=== PATIENT | female | born 2000 | race Caucasian/White ===

== ENCOUNTER 2024-02-18 15:59 | Inpatient (IN) ==
[2024-02-18] MEDS: SODIUM CHLORIDE 0.9% 1,000 ML IV ONE (16:20)
--- NOTE | 2024-02-18 16:30 | Emergency Department Note ---
History of Present Illness General Chief complaint: Syncope Stated complaint: FAINTED/ Time Seen by Provider: 02/18/24 16:07 Source: patient, family and cop History of Present Illness Provider complaint: Syncope 23-year-old female G1, P0 at 28 weeks gestation presents emergency department for syncope. Patient is non-Amharic speaking and claims specialist devices are used. Friends are at bedside who are also not able to give a detailed history. They stated that the patient was in the bathroom earlier today and then fainted. They stated that it was approximately 15 minutes where she was out. At first the friends were stating that the patient was convulsing but then started saying that the patient was not convulsing. Patient is currently reporting pain in her head and neck and chest. She is reporting difficulty breathing. Patient recently emigrated from [facility]. No vaginal bleeding. No vaginal discharge. No leakage of vaginal fluid. Home Medications Medication Instructions Recorded Confirmed Type 21-iron fu-folic acid PO 11/06/23 02/11/24 History [ Complete] Allergies Allergy/AdvReac Type Severity Reaction Status Date / Time No Known Allergies Allergy Verified 02/11/24 13:24 Past Med/Surg History Problem List (Updated 02/18/24 @ 23:03 by Mikael Oneill MD) On mechanically assisted ventilation Status post Seizures (Acute) 34 weeks gestation of Eclampsia (Acute) Velamentous insertion of umbilical cord Supervision of normal first Late care affecting Encounter for anatomic survey Medical History Gastritis Surgical History No history of previous surgery Family History Denies family history of Ovarian cancer Breast cancer Colorectal cancer Social History Smoking Status: Unknown if ever smoked Do You Dip or Chew Tobacco: No; marital status: marital status details: Kishore Delacruz (26) Current Living Situation: Spouse and Family Current Living Situation Comment: lives with spouse, sister in law, no pets current occupational status: other 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 Feels Safe at Home: Yes Physical Exam Vital Signs Vital Signs - 24 hr 02/18/24 16:03 02/18/24 16:03 02/18/24 16:03 Temperature Temperature Source Pulse Rate Pulse Rate [Apical] Pulse Rate from SpO2 Sensor Pulse Rhythm [Apical] Pulse Strength [Apical] Respiratory Rate Respiratory Effort / Characteristics Blood Pressure 165/116 H 165/116 H 165/116 H Blood Pressure [Right Arm] Blood Pressure Mean 121 121 121 Blood Pressure Mean [Right Arm] Blood Pressure Position [Right Arm] Pulse Oximetry Oxygen Delivery Method Fraction of Inspired Oxygen SaO2/FiO2 Ratio Sepsis New/Unexplained Change in Mental Status Sepsis Action Taken by Nursing End-Tidal CO2 02/18/24 16:06 02/18/24 16:14 02/18/24 16:17 Temperature Temperature Source Pulse Rate 147 H Pulse Rate [Apical] 138 H Pulse Rate from SpO2 Sensor 146 H Pulse Rhythm [Apical] Pulse Strength [Apical] Respiratory Rate 33 H 36 H Respiratory Effort / Characteristics Blood Pressure 166/117 H Blood Pressure [Right Arm] 158/116 H Blood Pressure Mean 136 Blood Pressure Mean [Right Arm] 130 Blood Pressure Position [Right Arm] Lying Pulse Oximetry 99 95 Oxygen Delivery Method Room Air Fraction of Inspired Oxygen SaO2/FiO2 Ratio Sepsis New/Unexplained Change in Mental Status Sepsis Action Taken by Nursing End-Tidal CO2 02/18/24 16:17 02/18/24 16:17 02/18/24 16:18 Temperature Temperature Source Pulse Rate 115 H Pulse Rate [Apical] Pulse Rate from SpO2 Sensor Pulse Rhythm [Apical] Pulse Strength [Apical] Respiratory Rate 20 Respiratory Effort / Characteristics Blood Pressure 166/117 H 166/117 H Blood Pressure [Right Arm] Blood Pressure Mean 136 136 Blood Pressure Mean [Right Arm] Blood Pressure Position [Right Arm] Pulse Oximetry 100 Oxygen Delivery Method Room Air Fraction of Inspired Oxygen SaO2/FiO2 Ratio Sepsis New/Unexplained Change in Mental Status Sepsis Action Taken by Nursing End-Tidal CO2 02/18/24 16:20 02/18/24 16:21 02/18/24 16:23 Temperature Temperature Source Pulse Rate 145 H 128 H Pulse Rate [Apical] Pulse Rate from SpO2 Sensor Pulse Rhythm [Apical] Pulse Strength [Apical] Respiratory Rate 31 H Respiratory Effort / Characteristics Blood Pressure 158/108 H Blood Pressure [Right Arm] Blood Pressure Mean 123 Blood Pressure Mean [Right Arm] Blood Pressure Position [Right Arm] Pulse Oximetry Oxygen Delivery Method Fraction of Inspired Oxygen SaO2/FiO2 Ratio Sepsis New/Unexplained Change in Mental Status Sepsis Action Taken by Nursing End-Tidal CO2 02/18/24 16:23 02/18/24 16:24 02/18/24 16:40 Temperature Temperature Source Pulse Rate 116 H Pulse Rate [Apical] Pulse Rate from SpO2 Sensor 117 H Pulse Rhythm [Apical] Pulse Strength [Apical] Respiratory Rate 34 H Respiratory Effort / Characteristics Blood Pressure 158/108 H 144/101 H Blood Pressure [Right Arm] Blood Pressure Mean 123 117 Blood Pressure Mean [Right Arm] Blood Pressure Position [Right Arm] Pulse Oximetry 99 Oxygen Delivery Method Fraction of Inspired Oxygen SaO2/FiO2 Ratio Sepsis New/Unexplained Change in Mental Status Sepsis Action Taken by Nursing End-Tidal CO2 02/18/24 16:40 02/18/24 16:42 02/18/24 16:45 Temperature Temperature Source Pulse Rate 117 H Pulse Rate [Apical] Pulse Rate from SpO2 Sensor 117 H Pulse Rhythm [Apical] Pulse Strength [Apical] Respiratory Rate 21 Respiratory Effort / Characteristics Blood Pressure 144/101 H 140/85 Blood Pressure [Right Arm] Blood Pressure Mean 117 103 Blood Pressure Mean [Right Arm] Blood Pressure Position [Right Arm] Pulse Oximetry 100 Oxygen Delivery Method Fraction of Inspired Oxygen SaO2/FiO2 Ratio Sepsis New/Unexplained Change in Mental Status Sepsis Action Taken by Nursing End-Tidal CO2 02/18/24 16:46 02/18/24 16:47 02/18/24 16:51 Temperature Temperature Source Pulse Rate 113 H 113 H Pulse Rate [Apical] 113 H Pulse Rate from SpO2 Sensor 113 H Pulse Rhythm [Apical] Pulse Strength [Apical] Respiratory Rate 26 H Respiratory Effort / Characteristics Blood Pressure 140/85 Blood Pressure [Right Arm] 140/85 Blood Pressure Mean Blood Pressure Mean [Right Arm] 103 Blood Pressure Position [Right Arm] Pulse Oximetry 100 Oxygen Delivery Method Fraction of Inspired Oxygen SaO2/FiO2 Ratio Sepsis New/Unexplained Change in Mental Status Sepsis Action Taken by Nursing End-Tidal CO2 02/18/24 16:54 02/18/24 16:54 02/18/24 17:01 Temperature Temperature Source Pulse Rate 114 H Pulse Rate [Apical] Pulse Rate from SpO2 Sensor 113 H Pulse Rhythm [Apical] Pulse Strength [Apical] Respiratory Rate 22 Respiratory Effort / Characteristics Blood Pressure 132/91 Blood Pressure [Right Arm] Blood Pressure Mean 104 Blood Pressure Mean [Right Arm] Blood Pressure Position [Right Arm] Pulse Oximetry 99 Oxygen Delivery Method Fraction of Inspired Oxygen SaO2/FiO2 Ratio Sepsis New/Unexplained Change in Mental Status No Sepsis Action Taken by Nursing No Action Required End-Tidal CO2 02/18/24 17:15 02/18/24 17:15 02/18/24 17:18 Temperature Temperature Source Pulse Rate 112 H Pulse Rate [Apical] Pulse Rate from SpO2 Sensor 112 H Pulse Rhythm [Apical] Pulse Strength [Apical] Respiratory Rate 19 Respiratory Effort / Characteristics Blood Pressure 134/102 H 134/102 H Blood Pressure [Right Arm] Blood Pressure Mean 106 106 Blood Pressure Mean [Right Arm] Blood Pressure Position [Right Arm] Pulse Oximetry 99 Oxygen Delivery Method Fraction of Inspired Oxygen SaO2/FiO2 Ratio Sepsis New/Unexplained Change in Mental Status Sepsis Action Taken by Nursing End-Tidal CO2 02/18/24 17:30 02/18/24 17:36 02/18/24 17:36 Temperature Temperature Source Pulse Rate 108 H Pulse Rate [Apical] Pulse Rate from SpO2 Sensor 108 H Pulse Rhythm [Apical] Pulse Strength [Apical] Respiratory Rate 23 Respiratory Effort / Characteristics Blood Pressure 184/127 H 184/127 H Blood Pressure [Right Arm] Blood Pressure Mean 149 149 Blood Pressure Mean [Right Arm] Blood Pressure Position [Right Arm] Pulse Oximetry 98 Oxygen Delivery Method Fraction of Inspired Oxygen SaO2/FiO2 Ratio Sepsis New/Unexplained Change in Mental Status Sepsis Action Taken by Nursing End-Tidal CO2 02/18/24 17:42 02/18/24 17:45 02/18/24 17:45 Temperature Temperature Source Pulse Rate 128 H Pulse Rate [Apical] Pulse Rate from SpO2 Sensor 131 H Pulse Rhythm [Apical] Pulse Strength [Apical] Respiratory Rate 22 Respiratory Effort / Characteristics Blood Pressure 134/111 H 134/111 H Blood Pressure [Right Arm] Blood Pressure Mean 114 114 Blood Pressure Mean [Right Arm] Blood Pressure Position [Right Arm] Pulse Oximetry 100 Oxygen Delivery Method Fraction of Inspired Oxygen SaO2/FiO2 Ratio Sepsis New/Unexplained Change in Mental Status Sepsis Action Taken by Nursing End-Tidal CO2 02/18/24 17:52 02/18/24 17:57 02/18/24 18:11 Temperature Temperature Source Pulse Rate 118 H Pulse Rate [Apical] Pulse Rate from SpO2 Sensor 118 H Pulse Rhythm [Apical] Pulse Strength [Apical] Respiratory Rate 17 Respiratory Effort / Characteristics Blood Pressure 190/135 H 150/100 H Blood Pressure [Right Arm] Blood Pressure Mean 158 112 Blood Pressure Mean [Right Arm] Blood Pressure Position [Right Arm] Pulse Oximetry 90 Oxygen Delivery Method Fraction of Inspired Oxygen SaO2/FiO2 Ratio Sepsis New/Unexplained Change in Mental Status Sepsis Action Taken by Nursing End-Tidal CO2 02/18/24 18:15 02/18/24 18:20 02/18/24 18:25 Temperature Temperature Source Pulse Rate 111 H Pulse Rate [Apical] Pulse Rate from SpO2 Sensor Pulse Rhythm [Apical] Pulse Strength [Apical] Respiratory Rate 30 H 23 Respiratory Effort / Characteristics Blood Pressure 152/91 H 132/90 Blood Pressure [Right Arm] Blood Pressure Mean 113 104 Blood Pressure Mean [Right Arm] Blood Pressure Position [Right Arm] Pulse Oximetry 99 Oxygen Delivery Method Fraction of Inspired Oxygen 100 SaO2/FiO2 Ratio Sepsis New/Unexplained Change in Mental Status Sepsis Action Taken by Nursing End-Tidal CO2 02/18/24 18:25 02/18/24 18:30 02/18/24 19:01 Temperature Temperature Source Pulse Rate 112 H 111 H 110 H Pulse Rate [Apical] Pulse Rate from SpO2 Sensor 112 H 111 H Pulse Rhythm [Apical] Pulse Strength [Apical] Respiratory Rate 26 H 26 H Respiratory Effort / Characteristics Blood Pressure 132/90 153/94 H 153/94 H Blood Pressure [Right Arm] Blood Pressure Mean 104 113 Blood Pressure Mean [Right Arm] Blood Pressure Position [Right Arm] Pulse Oximetry 99 99 Oxygen Delivery Method Fraction of Inspired Oxygen SaO2/FiO2 Ratio Sepsis New/Unexplained Change in Mental Status Sepsis Action Taken by Nursing End-Tidal CO2 02/18/24 19:10 02/18/24 20:09 02/18/24 20:15 Temperature 34.5 C L Temperature Source Axillary Pulse Rate 89 Pulse Rate [Apical] 90 Pulse Rate from SpO2 Sensor Pulse Rhythm [Apical] Regular Pulse Strength [Apical] Normal Respiratory Rate 16 18 19 Respiratory Effort / Characteristics Mechanically Ventilated Blood Pressure 145/98 H Blood Pressure [Right Arm] 135/75 Blood Pressure Mean 113 Blood Pressure Mean [Right Arm] 95 Blood Pressure Position [Right Arm] Semi-fowlers Pulse Oximetry 92 96 Oxygen Delivery Method Mechanical Vent Fraction of Inspired Oxygen 100 80 SaO2/FiO2 Ratio 92 Sepsis New/Unexplained Change in Mental Status Sepsis Action Taken by Nursing End-Tidal CO2 30 02/18/24 20:19 Temperature Temperature Source Pulse Rate Pulse Rate [Apical] 87 Pulse Rate from SpO2 Sensor Pulse Rhythm [Apical] Regular Pulse Strength [Apical] Normal Respiratory Rate 18 Respiratory Effort / Characteristics Mechanically Ventilated Blood Pressure Blood Pressure [Right Arm] 122/74 Blood Pressure Mean Blood Pressure Mean [Right Arm] 90 Blood Pressure Position [Right Arm] Semi-fowlers Pulse Oximetry 92 Oxygen Delivery Method Mechanical Vent Fraction of Inspired Oxygen 100 SaO2/FiO2 Ratio 92 Sepsis New/Unexplained Change in Mental Status Sepsis Action Taken by Nursing End-Tidal CO2 Physical Exam GENERAL: Patient is tearful. HENT: Exam performed. -Head: Normocephalic and atraumatic. EYES: Conjunctivae and EOM are normal. Pupils are equal, round, and reactive to light. Right eye exhibits no discharge. Left eye exhibits no discharge. No scleral icterus. NECK: Normal range of motion. Neck supple. No JVD present. No spinous process tenderness present. CV: Tachycardic rate, regular rhythm, normal heart sounds and intact distal pulses. Palpable radial pulses bue. PULM/CHEST: Tachypneic. Breath sounds clear bilaterally. ABD: The abdomen is soft and gravid. There is no tenderness. There is no rebound, no guarding. MUSC/SKEL: 2+ pitting edema of the bilateral lower extremities. NEURO: Motor and sensation grossly intact. GCS eye subscore is 4. GCS verbal subscore is 5. GCS motor subscore is 6. Cerebellar tests wnl. SKIN: Skin is warm and dry. Procedures Intubation Time out performed: Yes sedative: other (propofol) Mg Given: 80 paralytic: Succinylcholine Mg Given: 100 Laryngoscope: other (glidescope) ET Tube Size: 7 ET Tube Uncuffed: Yes Tube Secured Depth (cm): 24 Tube Secured Location: teeth Tube Placement Confirmation: visualized tube passing through cords, equal breath sounds bilaterally, no breath sounds over epigastrium and confirmation by capnometry Patient Tolerated Procedure: well Intubation Complications: difficult intubation Additional Comments: Difficult intubation. Patient had a large tongue that was bleeding after she had a seizure. Able to visualize the cords but had difficulty passing the cords. Patient was initially trying to be intubated with an S3 GlideScope and then started desatting she was bagged up to 96% with an Ambu bag and then an S4 was used and then the cords were able to be visualized and the ETT was able to be passed through the cords. After the patient was intubated the ET tube was deep it was retracted and then chest x-ray was shot which showed that the ET tube was in the right mainstem. The ET tube was retracted and then in the proper position. Course Course 1607: The patient was evaluated in room A10. A complete history and physical exam was performed Cardiac monitoring: An order was placed for continuous cardiac monitoring. The monitor shows a rate of 140 with sinus tachycardia rhythm interpreted by me Called to bedside by nursing. Director Transportation was attempted to be used there was difficulty with connection so an alternate translation service was used. Patient tachycardic and hypertensive. There is mild pitting edema over bilateral lower extremities. No convulsions were reported after further clarification with the friends, there is concern the patient might be preeclamptic. Labetalol 20 mg IV push ordered for the patient. Will hold off on magnesium at this time. Given the patient did faint and hit her head and she is reporting headache and neck pain we will obtain CT of the head and C-spine. Patient also recently emigrated from [facility] and she is reporting chest pain difficulty breathing so a CTA of the chest will also be performed. 1633: Spoke with Dr. London who agrees with the current workup and we will await CT imaging to make sure there is no pulmonary embolus or traumatic findings from the patient's syncopal episode. 1649: Patient blood pressure 140/85 pulse 113 status post 20 mg labetalol IV bolus. CT of the head viewed by me shows no ICH. 1721: Pulse 108 blood pressure 134/102. Labs are not concerning for preeclampsia normal platelet count no elevation of liver function test. CT of the head showed subtle areas with hypodensity and loss of wagner-white junction involving right posterior parietal lobe near the high convexity with the "caudate head. Acute/subacute right MCA territory infarct will be the diagnosis of exclusion. They recommended MRI for further evaluation. Discussed case with Dr. Surya ARRINGTON PG IGNITION EXPERT and we both agree that we will obtain the MRIs. [facility] telestroke will also be consulted. Dr. London said to hold off on any further labetalol as is not certain if the patient is truly having preeclampsia with her normal labs. He also states hold off on magnesium. Will discuss further blood pressure recommendations with telestroke as well as if telestroke would like MR angiograms. Dr. London stated he will send down OB nurse for tocometric monitoring. 1731:Discussed with [facility] and she states per the policy at this facility is that anybody who is can receive MRI contrast and therefore we will switch the patient to an MRI of the brain without contrast. Awaiting to speak with [facility]. 1800: Called to the bedside by nursing as the patient started having a tonic- clonic seizure biting her tongue and convulsing. Patient was rolled to her side. Her oxygen saturation did decrease and she was bagged with Ambu bag. Ativan 2 mg IV was given to the patient and she stopped seizing. Decision was made to secure the patient's airway. Magnesium sulfate 6 g over 20 minutes ordered for the patient as it is now think she is having eclamptic seizures. While we were preparing to secure the patient's airway Dr. Melvi Barahonaheserjio bolanos came on the line and agreed that the patient should be transferred to [facility]. Patient was a difficult intubation but she was successfully intubated. See procedure note. Patient's endotracheal tube was too deep initially and had to be pulled back. Dr. London IGNITION EXPERT came down and the patient was started on tocometric monitoring which shows no decelerations while her airway was being secured. Dr. London stated that the patient was having good accelerations and that she did not need to be delivered and he had to go up to do another stat C- section. Dr. Ogden states he will speak with the physicians at [facility] the IGNITION EXPERT team and the ICU team and work on sending a [employer] helicopter for the patient. Dr. Ogden stated that if the patient continues to be hypertensive once she is settled down and is sedated we will start her on a Cardene drip. A family friend who was able to translate to the family arrived and I did update them using the family friend as a claims specialist and explained that we would need to transfer the patient to [facility]. They are in agreement. 1835: Blood pressure 132/90 pulse 111, Cardene drip held at this time. Received a call from Dr. Melvi [facility] and he stated he spoke with the IGNITION EXPERT's at [facility] and they are insisting that the patient have a stat delivery here at this facility. They are requesting to speak with the IGNITION EXPERT's and do not feel like the patient is safe to get on a helicopter be delivered. Dr. Ogden stated that he could conference in the [address] London was contacted and he is currently on stat and will be down as soon as possible. Patient continues to do well on tocometric monitoring. No decelerations. Patient is sedated on propofol drip on the ventilator. Pupils are 4 mm and reactive. I asked if we need to redo CT her head and he stated this was not necessary at this time. 1905: pulse 111 blood pressure 123/86 patient is still on telemetric monitoring which is no decelerations. Dr. Elijah Yang IGNITION EXPERT came down at bedside and stated she spoke with the IGNITION EXPERT's at [facility] and states she will take the patient for delivery via . She is currently speaking with the father and the family at bedside via the family claims specialist. Administered Medications Discontinued Medications Sodium Chloride (Nss) 1,000 mls @ 999 mls/hr IV .Q1H1M ONE Stop: 02/18/24 17:17 Last Infusion: 02/18/24 18:04 Dose: Infused Documented By: Admin: 02/18/24 16:20 Dose: 999 mls/hr Documented By: SHAYNE Propofol (Diprivan) 1,000 mg in 100 mls @ 19.32 mls/hr IV .Q5H11M [facility]; Protocol Stop: 02/21/24 18:29 Last Titration: 02/18/24 18:56 Dose: 40 mcg/kg/min, 19.3 mls/hr Documented By: Titration: 02/18/24 18:30 Dose: 35 mcg/kg/min, 16.9 mls/hr Documented By: Titration: 02/18/24 18:10 Dose: 30 mcg/kg/min, 14.5 mls/hr Documented By: Titration: 02/18/24 18:00 Dose: 25 mcg/kg/min, 12.1 mls/hr Documented By: Admin: 02/18/24 17:50 Dose: 20 mcg/kg/min, 9.7 mls/hr Documented By: AUSTIN Co-signed By: JITENDRA Cefazolin Sodium (Ancef 2000mg) 2,000 mg in 15 mls @ 3.75 mls/min IV PREOP JAMILA; Protocol Stop: 02/18/24 21:00 Last Admin: 02/18/24 19:25 Dose: 3.75 mls/min Documented By: [id number] Ioversol (Optiray 320 100ml) 119 ml IV ONCE ONE Stop: 02/18/24 16:40 Last Admin: 02/18/24 16:39 Dose: 119 ml Documented By: ANDREW Labetalol HCl (Labetalol Hcl Iv 5 Mg/Ml 20ml) 20 mg IV NOW STA Stop: 02/18/24 16:18 Last Admin: 02/18/24 16:47 Dose: 20 mg Documented By: SHAYNE Labetalol HCl (Labetalol Hcl Iv 5 Mg/Ml 20ml) Confirm Administered Dose 20 mg IV .STK-MED ONE Stop: 02/18/24 16:19 Last Admin: 02/18/24 16:48 Dose: Not Given Documented By: SHAYNE Lorazepam (Lorazepam 1 Mg/1 Ml Syr Ed Inj Use) Confirm Administered Dose 2 mg .ROUTE .STK-MED ONE Stop: 02/18/24 17:35 Last Admin: 02/18/24 17:35 Dose: 2 mg Documented By: AUSTIN Magnesium Sulfate (Mag Sulfate 6gm Bolus From Bag) 6 gm IV ONE ONE Stop: 02/18/24 17:39 Last Admin: 02/18/24 18:04 Dose: Not Given Documented By: AUSTIN Magnesium Sulfate/Dextrose (Magnesium Sulfate 1gm / D5w Bag) Confirm Administered Dose 1 gm IV .STK-MED ONE Stop: 02/18/24 17:38 Last Admin: 02/18/24 18:14 Dose: Not Given Documented By: AUSTIN Magnesium Sulfate/Dextrose (Magnesium Sulfate 1gm / D5w Bag) Confirm Administered Dose 6 gm IV .STK-MED ONE Stop: 02/18/24 17:39 Last Admin: 02/18/24 18:04 Dose: 6 gm Documented By: AUSTIN Miscellaneous (Rapid Sequence Induction Bag) Confirm Administered Dose 1 each N/A .STK-MED ONE Stop: 02/18/24 17:37 Last Admin: 02/18/24 19:01 Dose: Not Given Documented By: VAISHNAVI Propofol (Propofol Iv Emulsion 10 Mg/Ml 100 Ml Vial) Confirm Administered Dose 1,000 mg IV .STK-MED ONE Stop: 02/18/24 17:39 Last Admin: 02/18/24 17:50 Dose: 1,000 mg Documented By: AUSTIN Co-signed By: JITENDRA Propofol (Propofol Bolus From Bag) 20 mg IV Q5M PRN PRN Reason: Sedation Stop: 02/21/24 18:21 Last Admin: 02/18/24 17:46 Dose: 80 mg Documented By: AUSTIN Co-signed By: JITENDRA Critical Care Time Critical Care Time: Yes Total Critical Care Time: 144 I have personally spent greater than 144 minutes of critical care time in the direct management of this patient. This includes bedside care, interpretation of diagnostic studies, and testing, discussion with consultants, patient, and family members, and other required patient management activities. This 144 minutes is in excess of all separately billable procedures. Medical Decision Making Medical Records Attestation: I reviewed the patient's medical records. External medical records reviewed. There is a visit from Dr. Nava from [facility] IGNITION EXPERT that the states the patient is approximately 28 weeks gestation. Laboratory Data Attestation: I reviewed the patient's lab results. 02/18/24 20:47 02/18/24 20:47 Lab Results 02/18/24 02/18/24 02/18/24 Range/Units 16:07 18:00 18:22 WBC 11.98 H 17.64 H (4.8-10.8) K/ul RBC 4.95 4.74 (4.20-5.40) M/uL Hgb 15.9 15.2 (12.0-16.0) g/dl Hct 45.8 44.9 (37.0-47.0) % MCV 92.5 94.7 (80.0-100.0) fL MCH 32.1 32.1 (25.0-34.0) pg MCHC 34.7 33.9 (32.0-36.0) g/dL RDW Std Deviation 42.7 44.1 (36.4-46.3) fL RDW Coeff of Deloris 12.5 12.6 (11.5-14.5) % Plt Count 230 216 (130-400) K/uL MPV 11.5 11.0 (9.4-12.4) fL Immature Gran % (Auto) 1.0 0.9 % Neut % (Auto) 58.0 73.7 % Lymph % (Auto) 33.3 18.1 % [place] % (Auto) 5.0 5.5 % Eos % (Auto) 2.5 1.6 % Baso % (Auto) 0.2 0.2 % Neut # (Auto) 6.95 H 13.01 H (1.40-6.50) K/uL Lymph # (Auto) 3.99 H 3.19 (1.20-3.40) K/uL [place] # (Auto) 0.60 H 0.97 H (0.11-0.59) K/uL Eos # (Auto) 0.30 0.28 (0.00-0.50) K/uL Baso # (Auto) 0.02 0.03 (0.00-0.20) K/uL Immature Gran # (Auto) 0.12 0.16 (0.01-0.20) K/uL PT 9.1 (9.0-12.0) Seconds INR 0.8 L (0.9-1.1) APTT 27 (21-31) Seconds PTT Ratio 1.0 Cord ABG pH (7.1-7.38) Cord ABG pCO2 (39.1-73.5) mmHg Cord ABG pO2 (4.1-31.7) mmHg Cord ABG HCO3 (19.7-28.5) mmol/L Cord ABG Base Excess (-9-1.8) mEq/L Cord ABG O2 Sat (<60) % Cord VBG pH (7.20-7.44) Cord VBG pCO2 (30.4-57.2) mmHg Cord VBG pO2 (14.1-43.3) mmHg Cord VBG HCO3 (18.4-26.8) mmol/L Cord VBG Base Excess (-7.7-1.9) mEq/L Cord VBG O2 Sat (<68) % Blood Gas Comments Sodium 137 138 (136-145) mmol/L Potassium 4.3 4.1 (3.5-5.1) mmol/L Chloride 107 110 H (98-107) mmol/L Carbon Dioxide 12 L 12 L (21-32) mmol/L Anion Gap 18 H 16 H (3-11) BUN 9 9 (6-23) mg/dl Creatinine 0.69 0.63 (0.6-1.2) mg/dl Est Cr Clr Drug Dosing Not Reportable 131.6 Est GFR ( Amer) 143.2 147.6 ml/min Est GFR (Non-Af Amer) 123.6 127.3 ml/min BUN/Creatinine Ratio 13.0 14.3 (10-20) Glucose 92 106 H (70-99(Fasting)) mg/dl Calcium 8.2 L 8.1 L (8.6-10.3) mg/dl Total Bilirubin 0.4 0.4 (0.2-1.0) mg/dl Direct Bilirubin 0.1 0.0 (0-0.2) mg/dl AST 31 39 (13-39) U/L ALT 28 33 (7-52) U/L Alkaline Phosphatase 287 H 266 H (34-104) U/L Total Protein 6.6 6.1 (6.0-8.3) gm/dl Albumin 3.3 L 3.0 L (3.4-5.0) gm/dl Urine Color Yellow Urine Appearance Clear (Clear) Urine pH 6.5 (4.5-7.5) Ur Specific [place] 1.026 (1.000-1.030) Urine Protein 4+ H (Negative) Urine Glucose (UA) Negative (Negative) Urine Ketones Negative (Negative) Urine Blood 1+ H (Negative) Urine Nitrite Negative (Negative) Urine Bilirubin Negative (Negative) Urine Urobilinogen Negative (Negative) Ur Leukocyte Esterase Negative (Negative) Urine WBC (Auto) 0-5 (0-5) /hpf Urine RBC (Auto) 0-2 (0-2) /hpf U Hyaline Cast (Auto) 11-20 H (0-2) /lpf U Epithel Cells (Auto) 0-2 (0-2) /hpf Urine Bacteria (Auto) 1+ H (None Seen) Blood Type Antibody Screen Antigen Identification 02/18/24 02/18/24 02/18/24 Range/Units 19:13 19:30 19:30 WBC (4.8-10.8) K/ul RBC (4.20-5.40) M/uL Hgb (12.0-16.0) g/dl Hct (37.0-47.0) % MCV (80.0-100.0) fL MCH (25.0-34.0) pg MCHC (32.0-36.0) g/dL RDW Std Deviation (36.4-46.3) fL RDW Coeff of Deloris (11.5-14.5) % Plt Count (130-400) K/uL MPV (9.4-12.4) fL Immature Gran % (Auto) % Neut % (Auto) % Lymph % (Auto) % [place] % (Auto) % Eos % (Auto) % Baso % (Auto) % Neut # (Auto) (1.40-6.50) K/uL Lymph # (Auto) (1.20-3.40) K/uL [place] # (Auto) (0.11-0.59) K/uL Eos # (Auto) (0.00-0.50) K/uL Baso # (Auto) (0.00-0.20) K/uL Immature Gran # (Auto) (0.01-0.20) K/uL PT (9.0-12.0) Seconds INR (0.9-1.1) APTT (21-31) Seconds PTT Ratio Cord ABG pH 7.15 (7.1-7.38) Cord ABG pCO2 65 (39.1-73.5) mmHg Cord ABG pO2 < 20 (4.1-31.7) mmHg Cord ABG HCO3 23 (19.7-28.5) mmol/L Cord ABG Base Excess -7.3 (-9-1.8) mEq/L Cord ABG O2 Sat < 60.0 (<60) % Cord VBG pH 7.16 L (7.20-7.44) Cord VBG pCO2 64 H (30.4-57.2) mmHg Cord VBG pO2 < 20 (14.1-43.3) mmHg Cord VBG HCO3 23 (18.4-26.8) mmol/L Cord VBG Base Excess -6.9 (-7.7-1.9) mEq/L Cord VBG O2 Sat < 60.0 (<68) % Blood Gas Comments INFANT A INFANT A Sodium (136-145) mmol/L Potassium (3.5-5.1) mmol/L Chloride (98-107) mmol/L Carbon Dioxide (21-32) mmol/L Anion Gap (3-11) BUN (6-23) mg/dl Creatinine (0.6-1.2) mg/dl Est Cr Clr Drug Dosing Est GFR ( Amer) ml/min Est GFR (Non-Af Amer) ml/min BUN/Creatinine Ratio (10-20) Glucose (70-99(Fasting)) mg/dl Calcium (8.6-10.3) mg/dl Total Bilirubin (0.2-1.0) mg/dl Direct Bilirubin (0-0.2) mg/dl AST (13-39) U/L ALT (7-52) U/L Alkaline Phosphatase (34-104) U/L Total Protein (6.0-8.3) gm/dl Albumin (3.4-5.0) gm/dl Urine Color Urine Appearance (Clear) Urine pH (4.5-7.5) Ur Specific [place] (1.000-1.030) Urine Protein (Negative) Urine Glucose (UA) (Negative) Urine Ketones (Negative) Urine Blood (Negative) Urine Nitrite (Negative) Urine Bilirubin (Negative) Urine Urobilinogen (Negative) Ur Leukocyte Esterase (Negative) Urine WBC (Auto) (0-5) /hpf Urine RBC (Auto) (0-2) /hpf U Hyaline Cast (Auto) (0-2) /lpf U Epithel Cells (Auto) (0-2) /hpf Urine Bacteria (Auto) (None Seen) Blood Type O Positive Antibody Screen POSITIVE A Antigen Identification Ileana Antigen - NEGATIVE Imaging Data Attestation: I personally reviewed and interpreted this imaging study as follows: My Impression: CT head: No ICH CTA chest: No PE Chest x-ray #1 at 1756: ETT in right mainstem Chest x-ray #2 at 1758: ETT still appears to be slightly on the right mainstem atelectasis of left lung. Chest x-ray #3 at 1800: ETT in place and better aeration of the left lung Radiologist's Impression: Cervical Spine CT 02/18/24 16:18 CT cervical spine wo con CLINICAL HISTORY: 23 years-old Female with chi. Acute head and neck injury status post trauma COMPARISON: None. TECHNIQUE: Multiple axial CT images of the cervical spine were obtained without contrast. A dose lowering technique was utilized adhering to the principles of ALARA. FINDINGS: Vertebral body heights and alignment are normal. No fracture or subluxation is identified. Mild kyphotic curvature centered at C5-C6. The intervertebral disc spaces are preserved. No significant central canal or neural foraminal stenosis is identified. The cervical soft tissues appear unremarkable. The visualized lung apices appear clear. IMPRESSION: No acute cervical spine fracture or subluxation. ACT 112: Negative or not required by law. The above report was generated using voice recognition software. It may contain grammatical, syntax or spelling errors. Electronically signed by: Michael Vega M.D. 02/18/2024 5:[address] 02/18/24 16:[address] DOSE: 1662.32 mGy.cm HISTORY: Closed head injury. TECHNIQUE: Multiaxial CT images of the head were performed without the use of intravenous contrast. Automated exposure control was utilized for this study. A dose lowering technique was utilized adhering to the principles of ALARA. Comparison: None. Findings: Mild mucosal thickening within the paranasal sinuses. The mastoid air cells are clear. The calvarium and skull base are intact. The ventricles and sulci are within normal limits. There is no mass, hematoma, midline shift. Small hypodensity within the right posterior parietal lobe best seen on images 20 and 21. There is also a small hypodense focus within the right high convexity on image 22 which appears to demonstrate loss of the wagner-white junction. Therefore, these findings could represent an acute to subacute small right parietal infarct. There is also suggestion of subtle hypodensity within the right caudate head on image 14. Impression: Subtle areas of hypodensity with loss of the wagner-white junction involving the right posterior parietal lobe near the high convexity and within the caudate head. Acute/subacute right MCA territory infarcts would be the diagnosis of exclusion. Therefore, follow-up brain MRI recommended for further evaluation. ACT 112: Negative or not required by law. Electronically signed by: Abdon Raza M.D. 02/18/2024 4:49 PM Chest CTA 02/18/24 16:24 CT angio chest PE protocol HISTORY: 23 years-old Female with ro PE. Acute shortness of breath TECHNIQUE: Multiple CTA images of the chest were obtained after the intravenous administration of 119 ml Optiray. Coronal and sagittal MIPS were obtained from the axial data set and were submitted for review. All measurements were obtained according to NASCET criteria. A dose lowering technique was utilized adhering to the principles of ALARA. COMPARISON: None. FINDINGS: CTA: There is adequate opacification of the pulmonary arteries to the level of the subsegmental branches without convincing evidence of acute pulmonary embolism. Normal thoracic aorta Heart size is normal. CT CHEST: Unremarkable thyroid. No pathologically enlarged lymph nodes. Axillary chain lymph nodes measure up to 7 mm bilaterally. Trace pleural effusions. No pneumothorax, pulmonary edema or airspace consolidation. No acute upper abdominal abnormality. Debris noted within distal esophagus. Unremarkable soft tissues. No acute fracture. IMPRESSION: 1. No pulmonary emboli. 2. Trace pleural effusions. 3. No airspace consolidation to suggest pneumonia. ACT 112: Negative or not required by law. The above report was generated using voice recognition software. It may contain grammatical, syntax or spelling errors. Electronically signed by: Michael Vega M.D. 02/18/2024 5:41 PM Chest X-Ray 02/18/24 17:52 XR chest 1V portable HISTORY: 23 years-old Female intubation acute respiratory failure COMPARISON: CTA chest of same day TECHNIQUE: Supine view of the chest FINDINGS: Malpositioned endotracheal tube terminates into the right mainstem bronchus, 2.8 cm inferior to the mayra. Opacified left hemithorax. Ill-defined right lung opacities. No pneumothorax. No acute fracture. IMPRESSION: Opacified left hemithorax with malpositioned endotracheal tube. Repositioning with follow-up imaging as needed. ACT 112: Negative or not required by law. The above report was generated using voice recognition software. It may contain grammatical, syntax or spelling errors. Electronically signed by: Michael Vega M.D. 02/18/2024 6:36 PM Chest X-Ray 02/18/24 17:58 XR chest 1V portable HISTORY: 23 years-old Female tube placement COMPARISON: Chest radiograph of same day at 5:56 AM TECHNIQUE: AP view the chest FINDINGS: Endotracheal tube overlies the midline, 3 mm superior to the mayra. Bilateral pulmonary opacities with improved aeration of left lung. A pneumothorax or pleural effusion. No acute fracture. Air-filled stomach. IMPRESSION: 1. Low-lying endotracheal tube. Repositioning with follow-up imaging recommended. 2. Left greater than right bilateral pulmonary opacities redemonstrated with improved aeration of the left lung. 3. No pneumothorax. ACT 112: Negative or not required by law. The above report was generated using voice recognition software. It may contain grammatical, syntax or spelling errors. Electronically signed by: Michael Vega M.D. 02/18/2024 6:26 PM Chest X-Ray 02/18/24 18:00 XR chest 1V portable HISTORY: 23 years-old Female tube placement COMPARISON: CTA chest of same day TECHNIQUE: AP view of the chest FINDINGS: Reposition of endotracheal tube, 1.4 cm superior to the mayra. Air-filled stomach. Improved aeration of the lungs with persistent bilateral pulmonary opacities.. No pneumothorax or pleural effusion. Bones appear intact. IMPRESSION: 1. Repositioned endotracheal tube terminates 1.4 cm superior to the mayra. 2. Improved aeration of the lungs. 3. No pneumothorax. ACT 112: Negative or not required by law. The above report was generated using voice recognition software. It may contain grammatical, syntax or spelling errors. Electronically signed by: Michael Vega M.D. 02/18/2024 6:35 PM ECG Data Attestation: I personally reviewed and interpreted this ECG as follows: Rate (beats per minute): 140 Rhythm: + sinus tachycardia ECG Intervals/blocks: + Normal AR and + Normal QT-c ECG ST segments: + Normal ST segments Additional Comments: QRS 66 MDM Narrative 1607: The patient was evaluated in room A10. A complete history and physical exam was performed Cardiac monitoring: An order was placed for continuous cardiac monitoring. The monitor shows a rate of 140 with sinus tachycardia rhythm interpreted by me Called to bedside by nursing. Director Transportation was attempted to be used there was difficulty with connection so an alternate translation service was used. Patient tachycardic and hypertensive. There is mild pitting edema over bilateral lower extremities. No convulsions were reported after further clarification with the friends, there is concern the patient might be preeclamptic. Labetalol 20 mg IV push ordered for the patient. Will hold off on magnesium at this time. Given the patient did faint and hit her head and she is reporting headache and neck pain we will obtain CT of the head and C-spine. Patient also recently emigrated from [place] and she is reporting chest pain difficulty breathing so a CTA of the chest will also be performed. 1633: Spoke with Dr. London who agrees with the current workup and we will await CT imaging to make sure there is no pulmonary embolus or traumatic findings from the patient's syncopal episode. 1649: Patient blood pressure 140/85 pulse 113 status post 20 mg labetalol IV bolus. CT of the head viewed by me shows no ICH. 1721: Pulse 108 blood pressure 134/102. Labs are not concerning for preeclampsia normal platelet count no elevation of liver function test. CT of the head showed subtle areas with hypodensity and loss of wagner-white junction involving right posterior parietal lobe near the high convexity with the "caudate head. Acute/subacute right MCA territory infarct will be the diagnosis of exclusion. They recommended MRI for further evaluation. Discussed case with Dr. London [place] [facility] [employer] and we both agree that we will obtain the MRIs. [facility] will also be consulted. Dr. London said to hold off on any further labetalol as is not certain if the patient is truly having preeclampsia with her normal labs. He also states hold off on magnesium. Will discuss further blood pressure recommendations with telestroke as well as if telestroke would like MR angiograms. Dr. London stated he will send down OB nurse for tocometric monitoring. 1731:Discussed with [facility] and she states per the policy at this facility is that anybody who is can receive MRI contrast and therefore we will switch the patient to an MRI of the brain without contrast. Awaiting to speak with [facility]. 1800: Called to the bedside by nursing as the patient started having a tonic- clonic seizure biting her tongue and convulsing. Patient was rolled to her side. Her oxygen saturation did decrease and she was bagged with Ambu bag. Ativan 2 mg IV was given to the patient and she stopped seizing. Decision was made to secure the patient's airway. Magnesium sulfate 6 g over 20 minutes ordered for the patient as it is now think she is having eclamptic seizures. While we were preparing to secure the patient's airway Dr. Melvi bolanos came on the line and agreed that the patient should be transferred to [facility]. Patient was a difficult intubation but she was successfully intubated. See procedure note. Patient's endotracheal tube was too deep initially and had to be pulled back. Dr. London IGNITION EXPERT came down and the patient was started on tocometric monitoring which shows no decelerations while her airway was being secured. Dr. London stated that the patient was having good accelerations and that she did not need to be delivered and he had to go up to do another stat C- section. Dr. Ogden states he will speak with the physicians at [facility] the IGNITION EXPERT team and the ICU team and work on sending a [employer] helicopter for the patient. Dr. Ogden stated that if the patient continues to be hypertensive once she is settled down and is sedated we will start her on a Cardene drip. A family friend who was able to translate to the family arrived and I did update them using the family friend as a claims specialist and explained that we would need to transfer the patient to [facility]. They are in agreement. 1835: Blood pressure 132/90 pulse 111, Cardene drip held at this time. Received a call from Dr. Ogden [facility] telestroke and he stated he spoke with the IGNITION EXPERT's at [facility] and they are insisting that the patient have a stat delivery here at this facility. They are requesting to speak with the IGNITION EXPERT's and do not feel like the patient is safe to get on a helicopter be delivered. Dr. Ogden stated that he could conference in the [address] London was contacted and he is currently on stat and will be down as soon as possible. Patient continues to do well on tocometric monitoring. No decelerations. Patient is sedated on propofol drip on the ventilator. Pupils are 4 mm and reactive. I asked if we need to redo CT her head and he stated this was not necessary at this time. 1905: pulse 111 blood pressure 123/86 patient is still on telemetric monitoring which is no decelerations. Dr. Elijah Yang IGNITION EXPERT came down at bedside and stated she spoke with the IGNITION EXPERT's at [facility] and states she will take the patient for delivery via . She is currently speaking with the father and the family at bedside via the family claims specialist. Impression & Plan Eclampsia, Seizures Discharge Plan Visit Data Chief Complaint: Syncope Stated Complaint: FAINTED/ ED Provider: Mikael Oneill Discharge Problem: Eclampsia, Seizures Patient Disposition: Admitted As Inpatient Discharge Instructions Interventions: ED Discharge Assessment Last Done: 02/18/24 19:36
[2024-02-18] MEDS: OPTIRAY 320 100ml IV ONE (16:39)
[2024-02-18 16:46] LABS: Basophils # (auto) 0.02 K/uL (0.00-0.20); Basophils % (auto) 0.2 %; Eosinophils % (auto) 2.5 %; Hematocrit (blood only) 45.8 % (37.0-47.0); Hemoglobin 15.9 g/dl (12.0-16.0); Immature Granulocytes # (auto) 0.12 K/uL (0.01-0.20); Lymphocytes # (auto) 3.99 K/uL (1.20-3.40); Lymphocytes % (auto) 33.3 %; Mean Corpuscular Hemoglobin 32.1 pg (25.0-34.0); Mean Corpuscular Hgb Conc 34.7 g/dL (32.0-36.0); Mean Corpuscular Volume 92.5 fL (80.0-100.0); Mean Platelet Volume 11.5 fL (9.4-12.4); Neutrophils # (auto) 6.95 K/uL (1.40-6.50); Platelet Count 230 K/uL (130-400); RDW Coefficient of Variation 12.5 % (11.5-14.5); RDW Standard Deviation 42.7 fL (36.4-46.3); Red Blood Count 4.95 M/uL (4.20-5.40); White Blood Count 11.98 K/ul (4.8-10.8)
[2024-02-18] MEDS: LABETALOL HCL IV 5 MG/ML 20ML IV STA (16:47)
[2024-02-18] MEDS: LABETALOL HCL IV 5 MG/ML 20ML IV ONE (16:48)
--- NOTE | 2024-02-18 16:51 | CT Scan Report ---
HEAD CT NONCONTRAST CT DOSE: 1662.32 mGy.cm HISTORY: Closed head injury. TECHNIQUE: Multiaxial CT images of the head were performed without the use of intravenous contrast. A utomated exposure control was utilized for this study. A dose lowering technique was utilized adheri ng to the principles of ALARA. Comparison: None. Findings: Mild mucosal thickening within the paranasal sinuses. The mastoid air cells are clear. The calvarium and skull base are intact. The ventricles and sulci are within normal limits. There is no m ass, hematoma, midline shift. Small hypodensity within the right posterior parietal lobe best seen on images 20 and 21. There is also a small hypodense focus within the right high convexity on image 22 which appears to demonstrate loss of the wagner-white junction. Therefore, these findings could represe nt an acute to subacute small right parietal infarct. There is also suggestion of subtle hypodensity within the right caudate head on image 14. Impression: Subtle areas of hypodensity with loss of the wagner-white junction involving the right posterior pariet al lobe near the high convexity and within the caudate head. Acute/subacute right MCA territory infar cts would be the diagnosis of exclusion. Therefore, follow-up brain MRI recommended for further evalu ation. ACT 112: Negative or not required by law. Electronically signed by: Abdon Raza M.D. 02/18/2024 4:49 PM
[2024-02-18 16:55] LABS: Alanine Aminotransferase 28 U/L (7-52); Albumin Level 3.3 gm/dl (3.4-5.0); Alkaline Phosphatase 287 U/L (34-104); Anion Gap 18 (3-11); Aspartate Aminotransferase 31 U/L (13-39); Bilirubin Direct 0.1 mg/dl (0-0.2); Bilirubin,Total 0.4 mg/dl (0.2-1.0); Blood Urea Nitrogen 9 mg/dl (6-23); Calcium 8.2 mg/dl (8.6-10.3); Carbon Dioxide 12 mmol/L (21-32); Chloride 107 mmol/L (98-107); Est GFR (African American) 143.2 ml/min; Est GFR (Non-African American) 123.6 ml/min; Glucose 92 mg/dl (70-99(Fasting)); Potassium 4.3 mmol/L (3.5-5.1); Sodium 137 mmol/L (136-145); Total Protein 6.6 gm/dl (6.0-8.3)
--- NOTE | 2024-02-18 17:10 | CT Scan Report ---
CT cervical spine wo con CLINICAL HISTORY: 23 years-old Female with chi. Acute head and neck injury status post trauma COMPARISON: None. TECHNIQUE: Multiple axial CT images of the cervical spine were obtained without contrast. A dose low ering technique was utilized adhering to the principles of ALARA. FINDINGS: Vertebral body heights and alignment are normal. No fracture or subluxation is identified. Mild kyphotic curvature centered at C5-C6. The intervertebral disc spaces are preserved. No signi ficant central canal or neural foraminal stenosis is identified. The cervical soft tissues appear unremarkable. The visualized lung apices appear clear. IMPRESSION: No acute cervical spine fracture or subluxation. ACT 112: Negative or not required by law. The above report was generated using voice recognition software. It may contain grammatical, syntax o r spelling errors. Electronically signed by: Michael Vega M.D. 02/18/2024 5:08 PM
[2024-02-18] MEDS: LORazepam 1 MG/1 ML SYR ED Inj Use ONE (17:35)
[2024-02-18] MEDS ORDERED: LORazepam 2 MG/1 ML VIAL IV STA (17:38)
--- NOTE | 2024-02-18 17:43 | CT Scan Report ---
CT angio chest PE protocol HISTORY: 23 years-old Female with ro PE. Acute shortness of breath TECHNIQUE: Multiple CTA images of the chest were obtained after the intravenous administration of 119 ml Optiray. Coronal and sagittal MIPS were obtained from the axial data set and were submitted for review. All measurements were obtained according to NASCET criteria. A dose lowering technique was u tilized adhering to the principles of ALARA. COMPARISON: None. FINDINGS: CTA: There is adequate opacification of the pulmonary arteries to the level of the subsegmental branches w ithout convincing evidence of acute pulmonary embolism. Normal thoracic aorta Heart size is normal. CT CHEST: Unremarkable thyroid. No pathologically enlarged lymph nodes. Axillary chain lymph nodes measure up t o 7 mm bilaterally. Trace pleural effusions. No pneumothorax, pulmonary edema or airspace consolidati on. No acute upper abdominal abnormality. Debris noted within distal esophagus. Unremarkable soft tissues . No acute fracture. IMPRESSION: 1. No pulmonary emboli. 2. Trace pleural effusions. 3. No airspace consolidation to suggest pneumonia. ACT 112: Negative or not required by law. The above report was generated using voice recognition software. It may contain grammatical, syntax o r spelling errors. Electronically signed by: Michael Vega M.D. 02/18/2024 5:41 PM
[2024-02-18] MEDS: PROPOFOL BOLUS FROM BAG IV PRN (17:46)
[2024-02-18] MEDS: propofoL 1,000 MG/100 ML VIAL IV SCH ×2 (17:50→20:10)
[2024-02-18] MEDS: PROPOFOL IV EMULSION 10 MG/ML 100 ML VIAL IV ONE (17:50)
[2024-02-18] MEDS: MAGNESIUM SULFATE 1GM / D5W BAG IV ONE ×2 (18:04→18:14)
[2024-02-18] MEDS: MAG SULFATE 6GM BOLUS FROM BAG IV ONE (18:04)
[2024-02-18] MEDS ORDERED: STAT IV Infusion **Titration per Protocol STA ×2 (18:22→23:16)
--- NOTE | 2024-02-18 18:28 | XRay Report ---
XR chest 1V portable HISTORY: 23 years-old Female tube placement COMPARISON: Chest radiograph of same day at 5:56 AM TECHNIQUE: AP view the chest FINDINGS: Endotracheal tube overlies the midline, 3 mm superior to the mayra. Bilateral pulmonary opacities wi th improved aeration of left lung. A pneumothorax or pleural effusion. No acute fracture. Air-filled stomach. IMPRESSION: 1. Low-lying endotracheal tube. Repositioning with follow-up imaging recommended. 2. Left greater than right bilateral pulmonary opacities redemonstrated with improved aeration of the left lung. 3. No pneumothorax. ACT 112: Negative or not required by law. The above report was generated using voice recognition software. It may contain grammatical, syntax o r spelling errors. Electronically signed by: Michael Vega M.D. 02/18/2024 6:26 PM
[2024-02-18 18:29] LABS: Basophils # (auto) 0.03 K/uL (0.00-0.20); Basophils % (auto) 0.2 %; Eosinophils # (auto) 0.28 K/uL (0.00-0.50); Eosinophils % (auto) 1.6 %; Hematocrit (blood only) 44.9 % (37.0-47.0); Hemoglobin 15.2 g/dl (12.0-16.0); Immature Granulocytes # (auto) 0.16 K/uL (0.01-0.20); Immature Granulocytes % (auto) 0.9 %; Lymphocytes # (auto) 3.19 K/uL (1.20-3.40); Lymphocytes % (auto) 18.1 %; Mean Corpuscular Hemoglobin 32.1 pg (25.0-34.0); Mean Corpuscular Hgb Conc 33.9 g/dL (32.0-36.0); Mean Corpuscular Volume 94.7 fL (80.0-100.0); Monocytes # (auto) 0.97 K/uL (0.11-0.59); Monocytes % (auto) 5.5 %; Neutrophils # (auto) 13.01 K/uL (1.40-6.50); Neutrophils % (auto) 73.7 %; Platelet Count 216 K/uL (130-400); RDW Coefficient of Variation 12.6 % (11.5-14.5); RDW Standard Deviation 44.1 fL (36.4-46.3); Red Blood Count 4.74 M/uL (4.20-5.40); White Blood Count 17.64 K/ul (4.8-10.8)
--- NOTE | 2024-02-18 18:36 | XRay Report ---
XR chest 1V portable HISTORY: 23 years-old Female tube placement COMPARISON: CTA chest of same day TECHNIQUE: AP view of the chest FINDINGS: Reposition of endotracheal tube, 1.4 cm superior to the mayra. Air-filled stomach. Improved aeration of the lungs with persistent bilateral pulmonary opacities.. No pneumothorax or pleural effusion. Jarrett marley appear intact. IMPRESSION: 1. Repositioned endotracheal tube terminates 1.4 cm superior to the mayra. 2. Improved aeration of the lungs. 3. No pneumothorax. ACT 112: Negative or not required by law. The above report was generated using voice recognition software. It may contain grammatical, syntax o r spelling errors. Electronically signed by: Michael Vega M.D. 02/18/2024 6:35 PM
--- NOTE | 2024-02-18 18:38 | XRay Report ---
XR chest 1V portable HISTORY: 23 years-old Female intubation acute respiratory failure COMPARISON: CTA chest of same day TECHNIQUE: Supine view of the chest FINDINGS: Malpositioned endotracheal tube terminates into the right mainstem bronchus, 2.8 cm inferior to the c carla. Opacified left hemithorax. Ill-defined right lung opacities. No pneumothorax. No acute fractur e. IMPRESSION: Opacified left hemithorax with malpositioned endotracheal tube. Repositioning with follow -up imaging as needed. ACT 112: Negative or not required by law. The above report was generated using voice recognition software. It may contain grammatical, syntax o r spelling errors. Electronically signed by: Michael Vega M.D. 02/18/2024 6:36 PM
[2024-02-18 18:45] LABS: BUN Creatinine Ratio 14.3 (10-20); Bilirubin,Total 0.4 mg/dl (0.2-1.0); Calcium 8.1 mg/dl (8.6-10.3); Creatinine Clr Calc Pharmacy 131.6 ml/min; Est GFR (African American) 147.6 ml/min; Est GFR (Non-African American) 127.3 ml/min; Potassium 4.1 mmol/L (3.5-5.1); Total Protein 6.1 gm/dl (6.0-8.3)
[2024-02-18 18:47] LABS: Appearance Urine Clear (Clear); Bacteria Urine Automated 1+ (None Seen); Bilirubin Urine Negative (Negative); Blood Urine 1+ (Negative); Color Urine Yellow; Epithelial Cell Urine Auto 0-2 /hpf (0-2); Glucose Urine UA Negative (Negative); Ketones Urine Negative (Negative); Leukocyte Esterase Urine Negative (Negative); Nitrite Urine Negative (Negative); Protein Urine 4+ (Negative); RBC Urine Automated 0-2 /hpf (0-2); Specific Gravity Urine 1.026 (1.000-1.030); Urobilinogen Urine Negative (Negative); WBC Urine Automated 0-5 /hpf (0-5); pH Urine 6.5 (4.5-7.5)
[2024-02-18] MEDS ORDERED: OXYTOCIN 10 UNITS/ML VIAL ONE ×2 (18:48→19:57)
[2024-02-18] MEDS ORDERED: MIDAZOLAM HCL 1 MG/ML 2ML VIAL ONE (18:55)
[2024-02-18] MEDS ORDERED: fentaNYL citrate PF 100 MCG/2 ML VIAL ONE (18:55)
[2024-02-18] MEDS ORDERED: PROPOFOL IV EMULSION 10 MG/ML 20 ML VIAL IV ONE ×2 (18:55→20:24)
[2024-02-18] MEDS ORDERED: MAGNESIUM SULFATE / WTR 40 GM/1,000 ML BAG IV SCH ×2 (19:00→22:12)
[2024-02-18 19:01] LABS: INR 0.8 (0.9-1.1); Partial Thromboplastin Time 27 Seconds (21-31); Prothrombin Time 9.1 Seconds (9.0-12.0)
[2024-02-18] MEDS: RAPID SEQUENCE INDUCTION BAG ONE (19:01)
--- NOTE | 2024-02-18 19:13 | History & Physical Report ---
Date of Service February 18, 2024 Assessment & Plan (1) Eclampsia: (2) 34 weeks gestation of : (3) Velamentous insertion of umbilical cord: (4) Late care affecting : Plan Again discussion held with mfm, who recommends delivery. Given circumstances, will plan c/s delivery. Consent reviewed and signed. Will plan OR soon. FHTs categ 1. Reviewed dx with family and that delivery of placenta helps with cure. They denied any further ?s. History of Present Illness Chief Complaint: eclampsia Primary Care Provider: [facility] 23yo at 34wks dimas presents to ER with seizures. Currently sedated and intubated. Patient seen earlier by my colleague who is currently attending another c/s. I came to ER to facilitate care. Apparently was having SMITH at home, was in shower and ? seizure activity and then fell and hit head. Came to ER where had multiple episodes of seizure and BPs severely eleva mehran. Received IV labetalol 20mg. Magnesium bolus given. She was intubated by anesthesia to protect airway. status was stable. Consult with mfm on phone recommends expedient delivery of baby to allow for recovery of mom. No transfer recommended given acute status of mom. Of note at some point, concern raised for brain hemorrhage but that is not the case per ER attending and radiology and mfm consult who apparently read films. Patient currently intubated. BPs more stable. Need to start mag infusion. I spoke with family with family finishing manager with their consent. Specifically her partner who gave consent to proceed with emergency c/s. PNC was regular after 20wks. PNC c/b 1. velamentous cord insertion , last growth u/s efw 18%. Allergies Allergy/AdvReac Type Severity Reaction Status Date / Time No Known Allergies Allergy Verified 02/11/24 13:24 Home Medications Medication Instructions Recorded Confirmed Type 21-iron fu-folic acid PO 11/06/23 02/11/24 History [ Complete] Patient History Medical History Gastritis Surgical History No history of previous surgery Family History Denies family history of Ovarian cancer Breast cancer Colorectal cancer Social History Smoking Status: Unknown if ever smoked Do You Dip or Chew Tobacco: No; marital status: marital status details: Kishore Delacruz (26) Current Living Situation: Spouse and Family Current Living Situation Comment: lives with spouse, sister in law, no pets current occupational status: other 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 Genitourinary: OB Exam Monitor Tracing: + external FHT monitor used, + external uterine monitor used, + category I and + normal FHT variability Results & Data Vital Signs (Past 12 Hours) Vital Signs Pulse Pulse Resp BP BP Pulse Ox O2 Del Method 02/18/24 19:01 110 H 153/94 H 02/18/24 18:30 111 H 26 H 153/94 H 99 02/18/24 18:25 112 H 26 H 132/90 99 02/18/24 18:25 111 H 23 132/90 99 02/18/24 18:20 152/91 H 02/18/24 18:15 30 H 02/18/24 18:11 150/100 H 02/18/24 17:57 118 H 17 90 02/18/24 17:52 190/135 H 02/18/24 17:45 134/111 H 02/18/24 17:45 134/111 H 02/18/24 17:42 128 H 22 100 02/18/24 17:36 184/127 H 02/18/24 17:36 184/127 H 02/18/24 17:30 108 H 23 98 02/18/24 17:18 112 H 19 99 02/18/24 17:15 134/102 H 02/18/24 17:15 134/102 H 02/18/24 17:01 132/91 02/18/24 16:54 114 H 22 99 02/18/24 16:51 113 H 26 H 100 02/18/24 16:47 113 H 140/85 02/18/24 16:46 113 H 140/85 02/18/24 16:45 140/85 02/18/24 16:42 117 H 21 100 02/18/24 16:40 144/101 H 02/18/24 16:40 144/101 H 02/18/24 16:24 116 H 34 H 99 02/18/24 16:23 158/108 H 02/18/24 16:23 158/108 H 02/18/24 16:21 128 H 31 H 02/18/24 16:20 145 H 02/18/24 16:18 115 H 20 100 Room Air 02/18/24 16:17 166/117 H 02/18/24 16:17 166/117 H 02/18/24 16:17 166/117 H 02/18/24 16:14 138 H 36 H 158/116 H 95 Room Air 02/18/24 16:06 147 H 33 H 99 02/18/24 16:03 165/116 H 02/18/24 16:03 165/116 H 02/18/24 16:03 165/116 H FiO2 02/18/24 19:01 02/18/24 18:30 02/18/24 18:25 02/18/24 18:25 02/18/24 18:20 02/18/24 18:15 100 02/18/24 18:11 02/18/24 17:57 02/18/24 17:52 02/18/24 17:45 02/18/24 17:45 02/18/24 17:42 02/18/24 17:36 02/18/24 17:36 02/18/24 17:30 02/18/24 17:18 02/18/24 17:15 02/18/24 17:15 02/18/24 17:01 02/18/24 16:54 02/18/24 16:51 02/18/24 16:47 02/18/24 16:46 02/18/24 16:45 02/18/24 16:42 02/18/24 16:40 02/18/24 16:40 02/18/24 16:24 02/18/24 16:23 02/18/24 16:23 02/18/24 16:21 02/18/24 16:20 02/18/24 16:18 02/18/24 16:17 02/18/24 16:17 02/18/24 16:17 02/18/24 16:14 02/18/24 16:06 02/18/24 16:03 02/18/24 16:03 02/18/24 16:03 Coding Level of Care Code None Diagnoses Eclampsia O15.9 34 weeks gestation of Z3A.34 Velamentous insertion of umbilical cord O43.129 Late care affecting O09.30 Comment not sure what this billing should be, prob global
[2024-02-18] MEDS: ceFAZolin 2000MG 2,000 MG/15 ML SYR IV SCH (19:25)
[2024-02-18] MEDS ORDERED: LACTATED RINGER'S 1,000 ML IV SCH ×2 (20:00→21:00)
[2024-02-18] MEDS: OXYTOCIN 20 UNITS/LR 1,002 ML IV SCH (20:10)
[2024-02-18] MEDS: MAGNESIUM SULFATE / WTR 40 GM/1,000 ML BAG IV SCH (20:10)
[2024-02-18] MEDS ORDERED: SENNA 8.6 MG TAB PO PRN (20:14)
[2024-02-18] MEDS ORDERED: diphenhydrAMINE 50 MG/ML VIAL IV PRN (20:14)
[2024-02-18] MEDS ORDERED: DIPHTHER/TETAN/PERTUS Vaccine (Tdap, Adol/Adult) 0.5mL IM ONE (20:14)
[2024-02-18] MEDS ORDERED: BENZOCAINE 20% SPRY 85 APPLN/85 GM CAN EXT PRN (20:14)
[2024-02-18] MEDS ORDERED: diphenhydrAMINE Capsule 25 MG CAP PO PRN (20:14)
[2024-02-18] MEDS ORDERED: ONDANSETRON INJ 2 MG/ML 2 ML VIAL IV PRN (20:14)
[2024-02-18] MEDS ORDERED: oxyCODONE HCL IR 5 MG TAB (IMMEDIATE RELEASE) PO PRN (20:14)
[2024-02-18] MEDS ORDERED: HYDROmorphone INJ 0.5 MG/0.5 ML SYR IV PRN (20:14)
[2024-02-18] MEDS ORDERED: MAGNESIUM HYDROXIDE SUSP 30 ML UDC PO PRN (20:14)
[2024-02-18] MEDS ORDERED: HYDROCORTISONE ACETATE 25 MG SUPP PR PRN (20:14)
[2024-02-18] MEDS ORDERED: CALCIUM CARBONATE 500 MG CHEWABLE TAB PO PRN (20:14)
[2024-02-18 20:19] LABS: Base Excess Cord Arterial Bld -7.3 mEq/L (-9-1.8); CO2 Cord Arterial Blood 65 mmHg (39.1-73.5); HCO3 Cord Arterial Blood 23 mmol/L (19.7-28.5); Oxygen Sat Cord Arterial Blood < 60.0 % (<60); PO2 Cord Arterial Blood < 20 mmHg (4.1-31.7); pH Cord Arterial Blood 7.15 (7.1-7.38)
[2024-02-18 20:20] LABS: Base Excess Cord Venous Blood -6.9 mEq/L (-7.7-1.9); Cord Venous Blood HCO3 23 mmol/L (18.4-26.8); Cord Venous Blood PCO2 64 mmHg (30.4-57.2); Cord Venous Blood PO2 < 20 mmHg (14.1-43.3); Cord Venous Blood pH 7.16 (7.20-7.44); O2 Saturation Cord Venous Bld < 60.0 % (<68)
[2024-02-18] MEDS ORDERED: ONDANSETRON INJ 2 MG/ML 2 ML VIAL ONE (20:24)
[2024-02-18] MEDS ORDERED: ROCURONIUM BROMIDE 10 MG/ML 5 ML VIAL IV ONE (20:24)
[2024-02-18] MEDS ORDERED: PHENYLEPHRINE 100MCG/ML 10ML SYR IV ONE (20:24)
[2024-02-18] MEDS ORDERED: ePHEDrine sulfate 50 MG/ML AMP IV PRN (20:32)
[2024-02-18] MEDS ORDERED: ATROPINE SULFATE 0.1 MG/ML 10ML SYR IV PRN (20:32)
--- NOTE | 2024-02-18 20:36 | Operative Report ---
Post Operative Report Pre & Post Diagnosis Operation Date: 02/18/24 19:30 Pre-Op Diagnosis: 1. eclampsia, 2. 34 Week of gestation of , 3. Velamentous insertion of umbilical cord, 4. Late care affecting Post-Op Diagnosis: 1. eclampsia, 2. 34 Week of gestation of , 3. Velamentous insertion of umbilical cord, 4. Late care affecting I identified the patient and participated in the time-out.: Yes Procedure Operation Date: 02/18/24 19:30 Actual Procedures p Section in OR(Not Applicable) - Rowdy Guzman MD, FACOG Surgeon Rowdy Guzman MD, FACOG [employer] Quantitative Blood Loss (QBL) 500 Findings Consistent with Post-Op Diagnosis Specimens Cord gases Cord blood Description of Procedure Clinical note Assessment & Plan (1) Eclampsia: (2) 34 weeks gestation of : (3) Velamentous insertion of umbilical cord: (4) Late care affecting : Plan Again discussion held with mfm, who recommends delivery. Given circumstances, will plan c/s delivery. Consent reviewed and signed. Will plan OR soon. FHTs categ 1. Reviewed dx with family and that delivery of placenta helps with cure. They denied any further ?s. History of Present Illness Chief Complaint: eclampsia Primary Care Provider: [facility] 23yo at 34wks dimas presents to ER with seizures. Currently sedated and intubated. Patient seen earlier by my colleague who is currently attending another c/s. I came to ER to facilitate care. Apparently was having SMITH at home, was in shower and ? seizure activity and then fell and hit head. Came to ER where had multiple episodes of seizure and BPs severely elevated. Received IV labetalol 20mg. Magnesium bolus given. She was intubated by anesthesia to protect airway. status was stable. Consult with mfm on phone recommends expedient delivery of baby to allow for recovery of mom. No transfer recommended given acute status of mom. Of note at some point, concern raised for brain hemorrhage but that is not the case per ER attending and radiology and mfm consult who apparently read films. Patient currently intubated. BPs more stable. Need to start mag infusion. I spoke with family with family site interpreter with their consent. Specifically her partner who gave consent to proceed with emergency c/s. PNC was regular after 20wks. PNC c/b 1. velamentous cord insertion , last growth u/s efw 18%. ^^^ Above is copied from Dr. Nava's note of note the patient presented to the emergency room with a concern for seizures and was intubated at the time that I met her. I was actively involved in the emergent care of another patient (surgery) unrelated to this. Dr. Nava was assisting me and scrubbed out to deal with the situation, Dr. Nava assessed the situation and after speaking with Dr. Portillo at maternal- medicine the recommendation was made to proceed with immediate delivery because of the diagnosis of likely eclampsia and for health of the mother and the baby. The recommendation was for section at this time as the patient was intubated pediatrics was made aware. I did speak to the family prior to the procedure as the mother was intubated at this stage but through an site interpreter we discussed the recommendation by [place] that the delivery occurred at [facility] and not after transfer they voiced understanding. Because I was the primary on-call decision was made to be the primary care coordinator. General anesthetic had been given by anesthesia patient was prepped and draped with a leftward tilt preoperative antibiotics had been given in appropriate timing by anesthesiology. Once the prep was allowed to fully dry timeout was performed. Scalpel was used to make a Pfannenstiel incision on the lower abdomen. We then cut through the subcutaneous fat down to the level of the anterior rectus sheath fascia this was cut in the midline and then extended laterally with the curved You scissors. At this stage we then placed 2 Cyndy clamps on the anterior aspect of the fascia. Using the curved You's we are able to dissect the fascia superiorly away from the rectus muscles. Care was taken to maintain hemostasis. Cyndy clamps were then placed to the inferior aspect of the anterior sheath of the fascia. Fascia was then dissected away from the rectus muscles inferiorly towards the pubic bone. A Cyndy was then placed in the midline both inferiorly and superiorly. This was to allow exposure by retraction rectus muscles were in the midline with were then able to cut through the peritoneum and then enter the peritoneal cavity. Opening was enlarged to allow exposure of the peritoneal cavity both superiorly and inferiorly. Once adequate space was obtained a bladder retractor was placed to expose the lower segment Metzenbaums were used to dissect the bladder flap inferiorly away from the uterus. This was done sharply bladder retractor was then repositioned to expose the lower segment of the uterus Fresh scalpel was used to make a low transverse incision on the uterus. Uterus was then entered bluntly with the operators finger, membranes ruptured and the opening was enlarged using the operators fingers bluntly pulling superiorly and inferiorly to allow exposure. Baby was delivered by first flexion of the head elevation of the head out of the pelvis and then pressure by the fire assistant on the maternal abdomen. Baby's head was then delivered mouth and then nares were suctioned and then using gentle traction the baby was fully delivered. Live vigorous . Fluid was clear cord clamped and cut cord gases obtained cord blood obtained baby handed to pediatrics. Placenta removed was removed with traction we ensure the entire placenta was removed with a moist lap sponge into the uterus Uterus was then exteriorized. IV Pitocin had been started by anesthesia tone improved there were no extensions the uterus was then closed using 0 Monocryl in a 2 layer closure the first layer closed in a running locked fashion from left to right and then a second closure from left to right in a running nonlocked fashion. At this stage hemostasis was excellent. Uterus was placed back in the peritoneal cavity with suction irrigation out and inspection of the uterus at this stage revealed excellent hemostasis Retractors were removed urine color was clear at this stage of the case we inspected the rectus muscles they were hemostatic fascia was closed with 0 Vicryl subcutaneous fat was irrigated and closed with 3-0 Vicryl skin closed with 4-0 subcuticular Monocryl Note urine was clear at the end the procedure patient received 2 g Ancef IV additionally because the patient was intubated from the emergency room she remained intubated and then proceeded to the ICU for care afterwards Note there is a small fibroid at the right fundal end of the uterus adnexa appeared normal I attest to the content of the Intraoperative Record and any orders documented therein. Any exceptions are noted below. OB Procedure Charges 01315
--- NOTE | 2024-02-18 20:37 | Anesthesiology Consultation ---
Date of Service February 18, 2024 Assessment & Plan Chart Review Chart Review: Acceptable Risk for Surgery and Patient seen in Pre Admission Testing Consults Requested none ASA ASA2E Proposed Anesthesia Anesthesia Type: General Risk / Benefits Reviewed With: PT / POA / Parent / Guardian, Accepts Plan and Informed Consent Obtained Additional Comments: Note entry delayed due to emergent c/section for suspected eeclampsia vs stroke. 23 y/o F with no known medical history and received care presented to ED after syncopal episode at home. Patient seized in ED and was intubated. Plan for GA. ASA 2E. History Surgery Operation Date: 02/18/24 19:30 Proposed Procedures p Section in OR - J. Baorn Guzman MD, FACOG Height/Weight Height: 5 ft Weight: 80.5 kg Allergies Allergy/AdvReac Type Severity Reaction Status Date / Time No Known Allergies Allergy Verified 02/11/24 13:24 Medications Home Medications Medication Instructions Recorded Confirmed Last Taken 21-iron fu-folic acid PO 11/06/23 02/11/24 Unknown [ Complete] Active Medications Generic Name Dose Route Start Last Admin Trade Name Freq PRN Reason Stop Dose Admin Propofol 1,000 mg in 100 mls @ 19.32 mls/hr 02/18/24 18:30 02/18/24 18:56 Diprivan IV 02/21/24 18:29 40 mcg/kg/min .Q5H11M JAMILA 19.3 mls/hr Titration Protocol 40 MCG/KG/MIN Cefazolin Sodium 2,000 mg in 15 mls @ 3.75 mls/min 02/18/24 19:15 02/18/24 19:25 Ancef 2000mg IV 02/18/24 21:00 3.75 mls/min PREOP JAMILA Administration Protocol Propofol 20 mg 02/18/24 18:22 02/18/24 17:46 Propofol Bolus From Bag IV 02/21/24 18:21 80 mg Q5M PRN Administration Sedation Past Medical History Medical History Gastritis Exercise / Class Metabolic Activity II 4-5 Yardwork/Stairs/Walk up hill Past Family History Family History Denies family history of Ovarian cancer Breast cancer Colorectal cancer Past Surgical History Surgical History No history of previous surgery Past Anesthesia History No Hx of Anesthesia Complications and No Family Hx of Anesthesia Complications History of PONV No Hx of PONV and No Hx of Motion Sickness Social History Smoking Status: Unknown if ever smoked Do You Dip or Chew Tobacco: No Review of Systems ROS Unobtainable: Unobtainable due to endotracheal tube Physical Exam Vital Signs Last Vital Signs Temp 34.5 C L 02/18/24 20:09 Pulse 87 02/18/24 20:19 Resp 18 02/18/24 20:19 BP 122/74 02/18/24 20:19 Pulse Ox 92 02/18/24 20:19 O2 Del Method Mechanical Vent 02/18/24 20:19 FiO2 100 02/18/24 20:19 ENMT Mouth: no TMJ abnormality Thyromental Distance: > or= 3.5 Finger Breadths Mallampati Class: Other (intubated) Neck normal visual inspection and trachea midline; neck extension not limited Respiratory normal respiratory effort Auscultation: lungs clear to auscultation bilaterally Cardiovascular Rate/Rhythm: regular rate and regular rhythm Heart Sounds: no murmur Musculoskeletal Spine: normal cervical ROM Extremities: full ROM of extremities Neurologic moves all extremities Psychiatric Orientation: alert and oriented x 3 Testing Laboratory Results 02/18/24 18:00 02/18/24 18:00 PT 9.1 Seconds (9.0-12.0) 02/18/24 18:00 INR 0.8 (0.9-1.1) L 02/18/24 18:00 APTT 27 Seconds (21-31) 02/18/24 18:00 Urine Color Yellow 02/18/24 18:22 Urine Appearance Clear (Clear) 02/18/24 18:22 Urine pH 6.5 (4.5-7.5) 02/18/24 18:22 Ur Specific [place] 1.026 (1.000-1.030) 02/18/24 18:22 Urine Protein 4+ (Negative) H 02/18/24 18:22 Urine Glucose (UA) Negative (Negative) 02/18/24 18:22 Urine Ketones Negative (Negative) 02/18/24 18:22 Urine Nitrite Negative (Negative) 02/18/24 18:22 Ur Leukocyte Esterase Negative (Negative) 02/18/24 18:22 Urine WBC (Auto) 0-5 /hpf (0-5) 02/18/24 18:22 Urine RBC (Auto) 0-2 /hpf (0-2) 02/18/24 18:22 U Hyaline Cast (Auto) 11-20 /lpf (0-2) H 02/18/24 18:22 U Epithel Cells (Auto) 0-2 /hpf (0-2) 02/18/24 18:22 Urine Bacteria (Auto) 1+ (None Seen) H 02/18/24 18:22 Blood Type O Positive 02/18/24 19:13 Antibody Screen POSITIVE A 02/18/24 19:13
--- NOTE | 2024-02-18 20:38 | Anesthesiology Progress Note ---
Date of Service February 18, 2024 Anesthesia Post Procedure Vital Signs Vital Signs: Temp Pulse Pulse Resp BP BP Pulse Ox 02/18/24 20:19 87 18 122/74 92 02/18/24 20:09 34.5 C L 90 18 135/75 92 02/18/24 19:10 16 145/98 H 02/18/24 19:01 110 H 153/94 H 02/18/24 18:30 111 H 26 H 153/94 H 99 02/18/24 18:25 112 H 26 H 132/90 99 02/18/24 18:25 111 H 23 132/90 99 02/18/24 18:20 152/91 H 02/18/24 18:15 30 H 02/18/24 18:11 150/100 H 02/18/24 17:57 118 H 17 90 02/18/24 17:52 190/135 H 02/18/24 17:45 134/111 H 02/18/24 17:45 134/111 H 02/18/24 17:42 128 H 22 100 02/18/24 17:36 184/127 H 02/18/24 17:36 184/127 H 02/18/24 17:30 108 H 23 98 02/18/24 17:18 112 H 19 99 02/18/24 17:15 134/102 H 02/18/24 17:15 134/102 H 02/18/24 17:01 132/91 02/18/24 16:54 114 H 22 99 02/18/24 16:51 113 H 26 H 100 02/18/24 16:47 113 H 140/85 02/18/24 16:46 113 H 140/85 02/18/24 16:45 140/85 02/18/24 16:42 117 H 21 100 02/18/24 16:40 144/101 H 02/18/24 16:40 144/101 H 02/18/24 16:24 116 H 34 H 99 02/18/24 16:23 158/108 H 02/18/24 16:23 158/108 H 02/18/24 16:21 128 H 31 H 02/18/24 16:20 145 H 02/18/24 16:18 115 H 20 100 02/18/24 16:17 166/117 H 02/18/24 16:17 166/117 H 02/18/24 16:17 166/117 H 02/18/24 16:14 138 H 36 H 158/116 H 95 02/18/24 16:06 147 H 33 H 99 02/18/24 16:03 165/116 H 02/18/24 16:03 165/116 H 02/18/24 16:03 165/116 H O2 Del Method FiO2 02/18/24 20:19 Mechanical Vent 100 02/18/24 20:09 Mechanical Vent 100 02/18/24 19:10 02/18/24 19:01 02/18/24 18:30 02/18/24 18:25 02/18/24 18:25 02/18/24 18:20 02/18/24 18:15 100 02/18/24 18:11 02/18/24 17:57 02/18/24 17:52 02/18/24 17:45 02/18/24 17:45 02/18/24 17:42 02/18/24 17:36 02/18/24 17:36 02/18/24 17:30 02/18/24 17:18 02/18/24 17:15 02/18/24 17:15 02/18/24 17:01 02/18/24 16:54 02/18/24 16:51 02/18/24 16:47 02/18/24 16:46 02/18/24 16:45 02/18/24 16:42 02/18/24 16:40 02/18/24 16:40 02/18/24 16:24 02/18/24 16:23 02/18/24 16:23 02/18/24 16:21 02/18/24 16:20 02/18/24 16:18 Room Air 02/18/24 16:17 02/18/24 16:17 02/18/24 16:17 02/18/24 16:14 Room Air 02/18/24 16:06 02/18/24 16:03 02/18/24 16:03 02/18/24 16:03 Transfer of Care Handoff Completed per policy Notes Mental Status: see notes below Patient Amnestic to Procedure: Yes Nausea / Vomiting: adequately controlled Pain: adequately controlled Airway Patency, RR, SpO2: stable & adequate BP & HR: stable & adequate Hydration State: stable & adequate Anesthetic Complications: no major complications apparent Notes: Decision made to keep patient intubated due to neurologic status in s/o seizure and suspected stroke. Patient was hemodynamically stable throughout case and upon arrival to ICU. Endotracheal tube in place and breath sounds b/l at sign off. No complications intraop.
[2024-02-18] MEDS ORDERED: PROMETHAZINE 12.5 MG/50.5 ML BAG IV PRN (20:51)
[2024-02-18 20:57] LABS: Basophils # (auto) 0.02 K/uL (0.00-0.20); Basophils % (auto) 0.2 %; Eosinophils # (auto) 0.15 K/uL (0.00-0.50); Eosinophils % (auto) 1.2 %; Hematocrit (blood only) 38.6 % (37.0-47.0); Hemoglobin 13.6 g/dl (12.0-16.0); Immature Granulocytes # (auto) 0.12 K/uL (0.01-0.20); Lymphocytes # (auto) 0.94 K/uL (1.20-3.40); Lymphocytes % (auto) 7.5 %; Mean Corpuscular Hemoglobin 32.2 pg (25.0-34.0); Mean Corpuscular Hgb Conc 35.2 g/dL (32.0-36.0); Mean Corpuscular Volume 91.3 fL (80.0-100.0); Mean Platelet Volume 11.1 fL (9.4-12.4); Monocytes # (auto) 0.49 K/uL (0.11-0.59); Monocytes % (auto) 3.9 %; Neutrophils # (auto) 10.83 K/uL (1.40-6.50); Neutrophils % (auto) 86.2 %; Platelet Count 191 K/uL (130-400); RDW Coefficient of Variation 12.7 % (11.5-14.5); RDW Standard Deviation 42.1 fL (36.4-46.3); Red Blood Count 4.23 M/uL (4.20-5.40); White Blood Count 12.55 K/ul (4.8-10.8)
[2024-02-18 20:58] VITALS: RESP 22
[2024-02-18] MEDS ORDERED: IBUPROFEN 600 MG TAB PO SCH (21:00)
[2024-02-18] MEDS ORDERED: ACETAMINOPHEN 325 MG TAB PO SCH (21:00)
[2024-02-18] MEDS ORDERED: DOCUSATE SODIUM 100 MG CAP PO SCH (21:00)
[2024-02-18] MEDS ORDERED: SIMETHICONE 80 MG CHEW PO SCH (21:00)
[2024-02-18 21:15] LABS: Albumin Level 2.7 gm/dl (3.4-5.0); BUN Creatinine Ratio 13.3 (10-20); Bilirubin,Total 0.3 mg/dl (0.2-1.0); Calcium 7.7 mg/dl (8.6-10.3); Creatinine Clr Calc Pharmacy 138.1 ml/min; Est GFR (Non-African American) 129.4 ml/min; Globulin 2.8 gm/dl (2.5-4.0); Magnesium 4.5 mg/dl (1.7-2.4); Potassium 4.1 mmol/L (3.5-5.1); Total Protein 5.5 gm/dl (6.0-8.3)
--- NOTE | 2024-02-18 21:16 | Critical Care Consultation ---
Date of Consultation February 18, 2024 Assessment & Plan (1) Eclampsia: Patient is a 23-year-old female, without known past medical history and presented to the emergency department with 34 weeks gestation with fall in shower with what appeared to be seizure activity. Patient proceeded to have multiple seizures in the emergency department and was treated with benzos. She was also significantly hypertensive with presentation consistent with eclampsia. She did not appear to have complications with her prior to this point per review of previous notes. Her CT head did show evidence of MCA territory infarcts, however per discussion with [facility] neurology they felt that this was more likely consistent with press syndrome and cerebral edema related to eclampsia. Pre-transfer it was requested that the patient undergo emergent For which she now presents to the ICU postop. She was left mechanically ventilated postop, And is noted to be fairly hypoxic. Unsure if patient may have aspirated during seizure. She was also noted to have atelectasis of the left lung following intubation in which the ET tube was right mainstem. However post ET tube adjustment chest x-ray did show improved aeration of the left lung field. Patient is currently on magnesium, Pitocin, and propofol drips. She remains sedated and still paralyzed upon evaluation from OR. Scleral edema observed on exam which would be consistent with underlying cerebral edema. Patient is currently normotensive. Unable to assess whether patient is having underlying seizure activity, but will continue propofol drip for antiseizure effects and give benzos if needed. I did speak with neurology and OB at [facility], and they have accepted the patient for transfer. Patient is to be transferred urgently via helicopter which is currently en route. I did speak with the patient's who is non-Taiwanese speaking and did use medical videographer service. He is agreeable to transfer, and did sign consent. Of note, I am told that the baby is also transferring to [facility]. Patient's ABG and repeat lab work is currently pending. Will continue with current medical management here at [facility] pending transfer to tertiary center. CRITICAL CARE TIME I have personally spent 58 minutes of critical care time in the direct management of this patient. This is a life/limb threatening event. This includes time spent evaluating patient, direct bedside care, chart review, placing orders, interpretation of diagnostic studies, discussion with consultants, patient, and family members, as well as other required patient management activities. This time is exclusive of all separately billable procedures, and teaching time and separate from and in addition to any other critical care service time. (2) Seizures: (3) 34 weeks gestation of : (4) Status post : (5) On mechanically assisted ventilation: History of Present Illness Attending Physician: Rowdy Guzman MD, FACOG History of Present Illness Patient is a 23-year-old female 34 weeks of gestation who presented to the emergency department earlier this evening after having a fall in the shower in which she had a witnessed seizure. She was brought to the emergency department where she was found to be hypertensive. CT head showed evidence of MCA territory infarcts. She had multiple seizures in the emergency department, and was given Ativan. Coordination for transfer to [facility] was coordinated but they wanted to proceed with emergent prior to transfer. Patient was taken emergently to the OR and underwent successful , for now she presents to the ICU postop. She is currently on magnesium and Pitocin drip, and propofol drip for sedation. I did speak with neurology and OB at [facility] in regards to her transfer, will for which they are excepting the patient. We will continue with further management here in the ICU pending transfer via [facility]he[facility]opter Allergies Allergy/AdvReac Type Severity Reaction Status Date / Time No Known Allergies Allergy Verified 02/11/24 13:24 Home Medications Medication Instructions Recorded Confirmed Type 21-iron fu-folic acid PO 11/06/23 02/11/24 History [ Complete] Patient History Medical History Gastritis Surgical History No history of previous surgery Family History Denies family history of Ovarian cancer Breast cancer Colorectal cancer Social History Smoking Status: Unknown if ever smoked Do You Dip or Chew Tobacco: No; Hx Alcohol Use: No (LAYLA) Hx Substance Use: No (LALYA) Preferred Language: Greek Communication Ability: Unable Skid Wrapper Required: Yes marital status: marital status details: Kishore Delacruz (25) Current Living Situation: Spouse and Family Current Living Situation Comment: [facility] current occupational status: 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 She does have bilateral scleral edema ENMT: external ear and nose normal, oropharynx normal Neck: trachea midline, no thyromegaly Respiratory: Coarse crackles auscultated bilaterally, symmetrical chest wall movement, mechanically ventilated Cardiovascular: Heart Sounds: normal S1 and normal S2; no murmur Extremities: no edema Gastrointestinal (Abdomen): normal bowel sounds, soft, nontender, no hepatosplenomegaly Musculoskeletal: no cyanosis or clubbing, extremities motor strength 5/5 Skin: no rashes, warm and dry Neurologic: Unable to assess due to sedation/paralytics Psychiatric: Unable to assess due to sedation/paralytics Genitourinary: Indwelling Alexis catheter present Results & Data Results & Data Vital Signs (Past 12 Hours) Vital Signs Temp Pulse Pulse Resp BP BP Pulse Ox 02/18/24 20:56 90 22 98 02/18/24 20:19 87 18 122/74 92 02/18/24 20:15 89 19 96 02/18/24 20:09 34.5 C L 90 18 135/75 92 02/18/24 19:10 16 145/98 H 02/18/24 19:01 110 H 153/94 H 02/18/24 18:30 111 H 26 H 153/94 H 99 02/18/24 18:25 112 H 26 H 132/90 99 02/18/24 18:25 111 H 23 132/90 99 02/18/24 18:20 152/91 H 02/18/24 18:15 30 H 02/18/24 18:11 150/100 H 02/18/24 17:57 118 H 17 90 02/18/24 17:52 190/135 H 02/18/24 17:45 134/111 H 02/18/24 17:45 134/111 H 02/18/24 17:42 128 H 22 100 02/18/24 17:36 184/127 H 02/18/24 17:36 184/127 H 02/18/24 17:30 108 H 23 98 09/05/24 17:18 112 H 19 99 02/18/24 17:15 134/102 H 02/18/24 17:15 134/102 H 02/18/24 17:01 132/91 02/18/24 16:54 114 H 22 99 02/18/24 16:51 113 H 26 H 100 02/18/24 16:47 113 H 140/85 02/18/24 16:46 113 H 140/85 02/18/24 16:45 140/85 02/18/24 16:42 117 H 21 100 02/18/24 16:40 144/101 H 02/18/24 16:40 144/101 H 02/18/24 16:24 116 H 34 H 99 02/18/24 16:23 158/108 H 02/18/24 16:23 158/108 H 02/18/24 16:21 128 H 31 H 02/18/24 16:20 145 H 02/18/24 16:18 115 H 20 100 02/18/24 16:17 166/117 H 02/18/24 16:17 166/117 H 02/18/24 16:17 166/117 H 02/18/24 16:14 138 H 36 H 158/116 H 95 02/18/24 16:06 147 H 33 H 99 02/18/24 16:03 165/116 H 02/18/24 16:03 165/116 H 02/18/24 16:03 165/116 H O2 Del Method FiO2 02/18/24 20:56 60 02/18/24 20:19 Mechanical Vent 100 02/18/24 20:15 80 02/18/24 20:09 Mechanical Vent 100 02/18/24 19:10 02/18/24 19:01 02/18/24 18:30 02/18/24 18:25 02/18/24 18:25 02/18/24 18:20 02/18/24 18:15 100 02/18/24 18:11 02/18/24 17:57 02/18/24 17:52 02/18/24 17:45 02/18/24 17:45 02/18/24 17:42 02/18/24 17:36 02/18/24 17:36 02/18/24 17:30 02/18/24 17:18 02/18/24 17:15 02/18/24 17:15 02/18/24 17:01 02/18/24 16:54 02/18/24 16:51 02/18/24 16:47 02/18/24 16:46 02/18/24 16:45 02/18/24 16:42 02/18/24 16:40 02/18/24 16:40 02/18/24 16:24 02/18/24 16:23 02/18/24 16:23 02/18/24 16:21 02/18/24 16:20 02/18/24 16:18 Room Air 02/18/24 16:17 02/18/24 16:17 02/18/24 16:17 02/18/24 16:14 Room Air 02/18/24 16:06 02/18/24 16:03 02/18/24 16:03 02/18/24 16:03 Coding Level of Care Code 44601 CRITICAL CARE 1ST 30-74M Diagnoses Eclampsia O15.9 Seizures R56.9 34 weeks gestation of Z3A.34 Status post Z98.891 On mechanically assisted ventilation Z99.11
[2024-02-18] MEDS ORDERED: OXYTOCIN 20 UNITS/LR 1,002 ML IV SCH (22:12)
[2024-02-18 23:10] VITALS: BP 134/84; PULSE 92; TEMP 96.1; O2SAT 98
[2024-02-18] MEDS: LACTATED RINGER'S 1,000 ML IV SCH ×2 (23:11→23:13)
[2024-02-18] MEDS: MAGNESIUM SULFATE 40GM / WTR 1,000 ML BAG IV ONE (23:11)
[2024-02-18] MEDS: SODIUM CHLORIDE 0.9% 1,000 ML IV SCH (23:13)
[2024-02-18] MEDS: METHYLERGONOVINE MALEATE 0.2 MG/ML AMP ONE (23:15)
[2024-02-18] MEDS: CARBOPROST TROMETHAMINE 250 MCG/ML AMPUL ONE (23:15)
[2024-02-18] MEDS ORDERED: PROPOFOL BOLUS FROM BAG IV PRN (23:16)
[2024-02-19] MEDS ORDERED: CITRIC ACID/SODIUM CITRATE 15 ML UDC PO SCH (06:00)
[2024-02-19] MEDS ORDERED: PRENATAL VITAMIN 1 TAB PO SCH (08:00)
[2024-02-19] MEDS ORDERED: FERROUS SULFATE 325 MG TAB PO SCH (08:00)
--- NOTE | 2024-02-19 08:54 | Electrocardiogram Report ---
Test Reason : Blood Pressure : */* mmHG Vent. Rate : 140 BPM Atrial Rate : 140 BPM P-R Int : 128 ms QRS Dur : 66 ms QT Int : 282 ms P-R-T Axes : 42 79 31 degrees QTcB Int : 430 ms Sinus tachycardia Nonspecific ST abnormality Abnormal ECG No previous ECGs available Confirmed by Brody Naylor ([id number]) on 02/19/2024 8:54:38 AM Referred By: REFERRED SELF Confirmed By: Brody Naylor
[2024-02-19 15:02] LABS: iSTAT Creatinine 0.6 mg/dl (0.6-1.3); iSTAT Hemoglobin 16.3 g/dl (12.0-16.0); iSTAT Ionized Calcium 1.09 mmol/l (1.12-1.32); iSTAT Potassium 4.4 mmol/L (3.3-5.0)
[2024-02-19] MEDS ORDERED: bisacodyL 5 MG TABEC PO SCH (20:00)
[2024-02-20] MEDS ORDERED: IBUPROFEN 600 MG TAB PO PRN (20:14)
[2024-02-20] MEDS ORDERED: ACETAMINOPHEN 325 MG TAB PO PRN (20:14)
[2024-02-20] MEDS ORDERED: bisacodyL 10 MG SUPP PR PRN (20:14)
--- NOTE | 2024-02-23 07:49 | Discharge Summary ---
Date of Service February 23, 2024 Admission HPI Per Admitting Provider 23yo at 34wks dimas presents to ER with seizures. Currently sedated and intubated. Patient seen earlier by my colleague who is currently attending another c/s. I came to ER to facilitate care. Apparently was having SMITH at home, was in shower and ? seizure activity and then fell and hit head. Came to ER where had multiple episodes of seizure and BPs severely elevated. Received IV labetalol 20mg. Magnesium bolus given. She was intubated by anesthesia to protect airway. status was stable. Consult with [facility] on phone recommends expedient delivery of baby to allow for recovery of mom. No transfer recommended given acute status of mom. Of note at some point, concern raised for brain hemorrhage but that is not the case per ER attending and radiology and mfm consult who apparently read films. Patient currently intubated. BPs more stable. Need to start mag infusion. I spoke with family with family bi data modeler with their consent. Specifically her partner who gave consent to proceed with emergency c/s. PNC was regular after 20wks. PNC c/b 1. velamentous cord insertion , last growth u/s efw 18%. Discharge Data Consultations 02/18/24 19:00 Consult Anesthesiology Stat 02/18/24 20:25 Consult French Teacher Routine Procedures Performed Operation Date: 02/18/24 19:30 Actual Procedures p Section in OR(Not Applicable) - Rowdy Guzman MD, [facility] Course (1) Eclampsia: Patient had a section under general anesthetic she had arrived in the emergency room was assessed and began to have seizures intubated decision was made by her she conversing with Dr. Nava to perform immediate delivery with this was performed by me operative note in the chart patient was subsequently sent to the ICU and then [facility]ri very soon afterwards (2) 34 weeks gestation of : (3) Velamentous insertion of umbilical cord: (4) Late care affecting : Plan Again discussion held with [facility], who recommends delivery. Given circumstances, will plan c/s delivery. Consent reviewed and signed. Will plan OR soon. FHTs categ 1. Reviewed dx with family and that delivery of placenta helps with cure. They denied any further ?s. Coding Level of Care Code None Diagnoses Eclampsia O15.9 34 weeks gestation of Z3A.34 Velamentous insertion of umbilical cord O43.129 Late care affecting O09.30
== END 2024-02-18 22:27 | disposition short-term general hospital (02) | DRG 786 ==
LOC: ED 15:59 → OR 19:36 → 1E 19:36